=== PATIENT | female | born 1965 | race Two or more races ===

== ENCOUNTER 2023-05-18 18:45 | Emergency (ER) | payer MEDICAID, OTHER ==
[~2023-05-18] VITALS: Ht 167.6 cm; Wt 91.0 kg
[2023-05-18 18:54] VITALS: BP 188/120; PULSE 113; RESP 20; TEMP 98.4; O2SAT 97
[2023-05-18] MEDS ORDERED: HYDROCODONE/ACETAMINOPHEN 5/325MG TABLET PO ONE (20:00)
[2023-05-18] MEDS ORDERED: IBUP-2029 MT (21:19)
[2023-05-18] MEDS ORDERED: CYCL10TA21 MT (21:19)
== END 2023-05-18 22:35 | disposition home or self-care (01) ==
LOC: ER 18:45
DX: S40.022A Contusion of left upper arm, initial encounter (principal); S40.012A Contusion of left shoulder, initial encounter; I10 Essential (primary) hypertension; V49.49XA Driver injured in collision with other motor vehicles in traffic accident, initial encounter; Y93.89 Activity, other specified; Y92.89 Other specified places as the place of occurrence of the external cause; Y99.8 Other external cause status
CPT/HCPCS: 71101; 73030; 73110; 99284